=== PATIENT | male | born 1975 | race Caucasian/White ===

== ENCOUNTER 2016-09-20 01:20 | Emergency (ER) | payer MEDICAID ==
[~2016-09-20] VITALS: Ht 180.3 cm; Wt 63.6 kg
[2016-09-20 01:21] VITALS: BP 132/86
== END 2016-09-20 03:43 | disposition left against medical advice (07) ==
LOC: EMS 01:20
DX: Z00.8 Encounter for other general examination (principal); Z53.21 Procedure and treatment not carried out due to patient leaving prior to being seen by health care provider

== ENCOUNTER 2018-12-12 19:16 | Emergency (ER) | payer SELFPAY ==
[~2018-12-12] VITALS: Ht 177.8 cm; Wt 74.1 kg
[2018-12-12] MEDS ORDERED: LIDOCAINE 1% 10 ML VIAL INJ ONE (20:30)
[2018-12-12] MEDS ORDERED: SULFAMETHOX/TRIMETH DS 800-160 MG/TABLET PO ONE (20:30)
[2018-12-12] MEDS ORDERED: POVIDONE-IODINE 10% 15 ML SOLUTION UD TP ONE (20:30)
[2018-12-12] MEDS ORDERED: CEPHALEXIN MONOHYDRATE 500 MG CAPSULE PO ONE (20:30)
[2018-12-12 21:16] VITALS: BP 125/98
== END 2018-12-12 21:35 | disposition home or self-care (01) ==
LOC: EMS 19:16
DX: T63.301A Toxic effect of unspecified spider venom, accidental (unintentional), initial encounter (principal); L03.113 Cellulitis of right upper limb; L02.413 Cutaneous abscess of right upper limb; R03.0 Elevated blood-pressure reading, without diagnosis of hypertension; F12.90 Cannabis use, unspecified, uncomplicated; F15.90 Other stimulant use, unspecified, uncomplicated; F17.210 Nicotine dependence, cigarettes, uncomplicated; Y92.89 Other specified places as the place of occurrence of the external cause
CPT/HCPCS: 10060; 99283; J3490

== ENCOUNTER 2019-01-16 13:07 | Emergency (ER) | payer SELFPAY ==
[~2019-01-16] VITALS: Ht 175.3 cm; Wt 68.2 kg
[2019-01-16 13:21] VITALS: BP 144/92
[2019-01-16] MEDS ORDERED: NEOMYCIN/POLYMYXIN B/HYDROCORT 10 ML OTIC SOLUTION AS ONE (14:15)
[2019-01-16] MEDS ORDERED: AMOXICILLIN TRIHYDRATE 250 MG CAPSULE PO ONE (14:15)
[2019-01-16] MEDS ORDERED: NEOMYCIN/POLYMYXIN B/HYDROCORT 10 ML OTIC SUSPENSION AS ONE (14:30)
== END 2019-01-16 14:30 | disposition left against medical advice (07) ==
LOC: EMS 13:09
DX: H66.92 Otitis media, unspecified, left ear (principal); F12.90 Cannabis use, unspecified, uncomplicated; F15.90 Other stimulant use, unspecified, uncomplicated; F17.210 Nicotine dependence, cigarettes, uncomplicated; Z59.0 Homelessness
CPT/HCPCS: 99406